=== PATIENT | female | born 1955 | race African-American/Black ===

== ENCOUNTER 2023-11-19 12:05 | Inpatient (IN) | payer MEDICARE, OTHER ==
[~2023-11-19] VITALS: Ht 170.2 cm; Wt 47.6 kg
[2023-11-19 13:01] LABS: EOSINOPHILS # (AUTO) 0.1 K/uL (0.0-0.7); EOSINOPHILS % (AUTO) 2.3 % (0.0-7.0); HEMATOCRIT 39.3 % (31.2-41.9); HEMOGLOBIN 12.8 g/dL (10.9-14.3); LYMPHOCYTES # (AUTO) 1.8 K/uL (0.8-4.8); LYMPHOCYTES % (AUTO) 43.7 % (20.5-51.5); MEAN CORPUSCULAR HEMOGLOBIN 28.4 uug (24.7-32.8); MEAN CORPUSCULAR HGB CONC 33 g/dL (32.3-35.6); MEAN CORPUSCULAR VOLUME 86.9 fL (75.5-95.3); MONOCYTES # (AUTO) 0.4 K/uL (0.1-1.30); MONOCYTES % (AUTO) 8.5 % (0.0-11.0); NEUTROPHILS # (AUTO) 1.8 K/uL (1.8-8.9); NEUTROPHILS % (AUTO) 44.5 % (38.5-71.5); PLATELET COUNT (AUTO) 163 K/uL (179-408); RED BLOOD CELL COUNT(AUTO) 4.52 MIL/uL (3.63-4.92); RED CELL DISTRIBUTION WIDTH 13.5 % (12.3-17.7); WHITE BLOOD COUNT (AUTO) 4.1 K/uL (3.8-11.8)
[2023-11-19] MEDS ORDERED: METF-442 PO (13:01)
[2023-11-19] MEDS ORDERED: FURO40TA5 PO (13:01)
[2023-11-19] MEDS ORDERED: OMEP20CA15 PO (13:01)
[2023-11-19] MEDS ORDERED: LIDOCAINE 4% CREAM (13:01)
[2023-11-19] MEDS ORDERED: [UNRECOGNIZED DRUG - OTHER] (13:01)
[2023-11-19] MEDS ORDERED: DICLOFENAC 1% (13:01)
[2023-11-19] MEDS ORDERED: DULO20CA PO (13:01)
[2023-11-19] MEDS ORDERED: REPA0.5T6 PO (13:01)
[2023-11-19] MEDS ORDERED: PHEN100C4 PO (13:01)
[2023-11-19] MEDS ORDERED: SEMA0.25 SQ (13:01)
[2023-11-19] MEDS ORDERED: GLUCERNA (13:01)
[2023-11-19] MEDS ORDERED: MULTIVITAMIN (13:01)
[2023-11-19] MEDS ORDERED: FOLI1TAB27 PO (13:01)
[2023-11-19] MEDS ORDERED: ATOR80TA PO (13:01)
[2023-11-19] MEDS ORDERED: ENALIPRIL (13:01)
[2023-11-19] MEDS ORDERED: INSU100V39 SQ (13:01)
[2023-11-19] MEDS ORDERED: RUXOLITINIB (13:01)
[2023-11-19] MEDS ORDERED: ASPI81TA31 PO (13:01)
[2023-11-19] MEDS ORDERED: [UNRECOGNIZED DRUG - OTHER] SQ (13:01)
[2023-11-19 13:12] LABS: ALANINE AMINOTRANSFERASE 24 U/L (14-59); ALBUMIN 3.7 g/dL (3.4-5.0); ALKALINE PHOSPHATASE 128 U/L (50-136); ASPARTATE AMINOTRANSFERASE 11 U/L (15-37); BILIRUBIN,TOTAL 0.3 mg/dL (0.2-1.0); CARBON DIOXIDE 29 mmol/L (21-32); CHLORIDE 100 mmol/L (98-107); CREATININE 0.7 mg/dL (0.6-1.3); GLUCOSE 175 mg/dL (74-106); POTASSIUM 3.8 mmol/L (3.5-5.1); SODIUM SERUM 141 mmol/L (136-145); TOTAL PROTEIN, SERUM 6.5 g/dL (6.4-8.2); UREA NITROGEN, BLOOD 14 mg/dL (7-18)
[2023-11-19] MEDS ORDERED: DEXTROSE 50% 50 ML DISP.SYRIN IV PRN (13:15)
[2023-11-19] MEDS ORDERED: ACETAMINOPHEN 325 MG TABLET PO PRN (13:15)
[2023-11-19] MEDS ORDERED: ONDANSETRON 4 MG/2 ML VIAL IV PRN (13:15)
[2023-11-19] MEDS ORDERED: HYDROCODONE/APAP 5-325MG TABLET PO PRN (13:15)
[2023-11-19] MEDS ORDERED: MAGNESIUM HYDROXIDE 30 ML LIQUID UDC PO PRN (13:15)
[2023-11-19] MEDS ORDERED: REMEDY ESSENTIAL ZINC PASTE 113 GM TP PRN (13:15)
[2023-11-19 13:19] LABS: DIFFERENTIAL COMMENT 1
[2023-11-19 13:20] LABS: BILIRUBIN,DIRECT < 0.1 mg/dL (0.0-0.2)
[2023-11-19] MEDS ORDERED: VOLTAREN XX SCH (13:30)
[2023-11-19] MEDS ORDERED: REPAGLINIDE 1 MG TABLET PO SCH (13:30)
[2023-11-19 15:32] VITALS: BP 129/91; TEMP 98.5; O2SAT 95
[2023-11-19 15:33] LABS: *BILIRUBIN,URIN NEGATIVE (NEGATIVE); *COLOR,URINE YELLOW (YELLOW); *KETONES,URINE NEGATIVE (NEGATIVE); *PROTEIN,URINE NEGATIVE (NEGATIVE); *UROBILINOGEN,URINE 0.2 E.U./dl (NORMAL); LEUKOCYTE ESTERASE ,URINE 3+ (NEGATIVE); NITRITE, URINE NEGATIVE (NEGATIVE); PH,URINE 7.5 (5.0-8.0); UGLUCOSE NEGATIVE (NEGATIVE)
[2023-11-19 16:06] LABS: *BLOOD, URINE TRACE (NEGATIVE); *CLARITY,URINE SLIGHTLY CLOUDY (CLEAR)
[2023-11-19 17:04] LABS: BACTERIA,URINE FEW /HPF (NONE SEEN); RBC,URINE 0-3 /HPF (0-3); SQUAMOUS EPITHELIAL CELL,UR FEW /HPF (NONE SEEN); WBC,URINE TNTC /HPF (0-3)
[2023-11-19] MEDS: BLOOD SUGAR DIAGNOSTIC 1 EACH STRIP VI SCH (17:23)
[2023-11-19] MEDS: INSULIN REGULAR, HUMAN 300 UNIT/3 ML VIAL SQ PRN (17:25)
[2023-11-19] MEDS: REPAGLINIDE 1 MG TABLET PO SCH (17:27)
[2023-11-19] MEDS: CEFTRIAXONE 1 G in IV DEXTROSE 5% 50 ML IV SCH (20:41)
[2023-11-19] MEDS: PHENYTOIN SODIUM EXTENDED 100 MG CAPSULE.SA PO SCH (20:41)
[2023-11-19] MEDS: ATORVASTATIN 40 MG TABLET PO SCH (20:48)
[2023-11-19 22:10] VITALS: BP 136/64; TEMP 98.2; O2SAT 99
[2023-11-20] MEDS: PANTOPRAZOLE SODIUM 40 MG TABLET.DR PO SCH (06:13)
[2023-11-20 06:45] LABS: BASOPHILS % (AUTO) 0.5 % (0.0-2.0); EOSINOPHILS # (AUTO) 0.1 K/uL (0.0-0.7); EOSINOPHILS % (AUTO) 3.4 % (0.0-7.0); HEMATOCRIT 37.6 % (31.2-41.9); HEMOGLOBIN 12.5 g/dL (10.9-14.3); LYMPHOCYTES # (AUTO) 1.6 K/uL (0.8-4.8); LYMPHOCYTES % (AUTO) 48.5 % (20.5-51.5); MEAN CORPUSCULAR HEMOGLOBIN 28.8 uug (24.7-32.8); MEAN CORPUSCULAR HGB CONC 33 g/dL (32.3-35.6); MEAN CORPUSCULAR VOLUME 86.7 fL (75.5-95.3); MONOCYTES # (AUTO) 0.3 K/uL (0.1-1.30); MONOCYTES % (AUTO) 10.6 % (0.0-11.0); NEUTROPHILS # (AUTO) 1.2 K/uL (1.8-8.9); PLATELET COUNT (AUTO) 155 K/uL (179-408); RED BLOOD CELL COUNT(AUTO) 4.33 MIL/uL (3.63-4.92); RED CELL DISTRIBUTION WIDTH 13.6 % (12.3-17.7); WHITE BLOOD COUNT (AUTO) 3.2 K/uL (3.8-11.8)
[2023-11-20 06:51] LABS: DIFFERENTIAL COMMENT 1
[2023-11-20 06:52] LABS: CALCIUM 8.6 mg/dL (8.5-10.1); CARBON DIOXIDE 32 mmol/L (21-32); CHLORIDE 101 mmol/L (98-107); CHOLESTEROL 98 mg/dL (<200); CREATININE 0.5 mg/dL (0.6-1.3); GLUCOSE 226 mg/dL (74-106); HDL CHOLESTEROL 53 mg/dL (40-60); MAGNESIUM 1.7 mg/dL (1.8-2.4); PHOSPHOROUS 4.1 mg/dL (2.5-4.9); SODIUM SERUM 140 mmol/L (136-145); TRIGLYCERIDES 25 MG/DL (30-150); UREA NITROGEN, BLOOD 11 mg/dL (7-18)
[2023-11-20 07:01] LABS: THYROID STIMULATING HORMONE 2.625 mIU/mL (0.358-3.740)
[2023-11-20] MEDS: DULOXETINE 20 MG CAPSULE.DR PO SCH (08:41)
[2023-11-20] MEDS: FUROSEMIDE 40 MG TABLET PO SCH (08:41)
[2023-11-20] MEDS: ASPIRIN 81 MG TAB.CHEW PO SCH (08:41)
[2023-11-20] MEDS: ENALAPRIL 10 MG TABLET PO SCH (08:42)
[2023-11-20] MEDS: FOLIC ACID 1 MG TABLET PO SCH (08:42)
[2023-11-20] MEDS ORDERED: SEMA0.25 SQ (10:14)
[2023-11-20] MEDS: MAGNESIUM OXIDE 400 MG TABLET PO ONE (10:15)
[2023-11-20] MEDS ORDERED: ENAL-80 PO (10:22)
[2023-11-20 10:53] VITALS: BP 127/66; TEMP 98; O2SAT 99
[2023-11-20] MEDS ORDERED: MULT-1045 PO (11:12)
[2023-11-20] MEDS ORDERED: LIDO28.310 TP (11:12)
[2023-11-20] MEDS ORDERED: INSU100I24 SQ (11:12)
[2023-11-20] MEDS ORDERED: RUXOLITINIB TOP (11:12)
[2023-11-20 12:00] VITALS: BP 102/68; TEMP 98.8; O2SAT 97
[2023-11-20 16:03] VITALS: BP 101/60; TEMP 98.3; O2SAT 98
[2023-11-20 20:00] VITALS: BP 112/70; TEMP 98.3; O2SAT 97
[2023-11-21 06:44] VITALS: BP 117/63; TEMP 98; O2SAT 99
[2023-11-21 07:21] LABS: CREATININE 0.7 mg/dL (0.6-1.3); MAGNESIUM 2.1 mg/dL (1.8-2.4); POTASSIUM 3.9 mmol/L (3.5-5.1)
[2023-11-21 11:49] VITALS: BP 104/69; TEMP 98.3; O2SAT 93
[2023-11-21 16:44] VITALS: BP 99/65; TEMP 98.3; O2SAT 97
[2023-11-21] MEDS: GLUCERNA SHAKE 237 ML CAN PO SCH (17:04)
[2023-11-21] MEDS: RUXOLITINIB TP SCH (17:11)
[2023-11-21 20:00] VITALS: BP 111/69; TEMP 98.3; O2SAT 96
[2023-11-21] MEDS: TRESIBA 100 UNIT/ML SQ SCH (21:13)
[2023-11-22 06:40] VITALS: BP 99/59; TEMP 97.4; O2SAT 99
[2023-11-22 07:26] LABS: BASOPHILS % (AUTO) 0.6 % (0.0-2.0); EOSINOPHILS # (AUTO) 0.1 K/uL (0.0-0.7); EOSINOPHILS % (AUTO) 4.2 % (0.0-7.0); HEMATOCRIT 38.4 % (31.2-41.9); HEMOGLOBIN 12.6 g/dL (10.9-14.3); LYMPHOCYTES # (AUTO) 1.5 K/uL (0.8-4.8); LYMPHOCYTES % (AUTO) 50.2 % (20.5-51.5); MEAN CORPUSCULAR HEMOGLOBIN 28.3 uug (24.7-32.8); MEAN CORPUSCULAR HGB CONC 33 g/dL (32.3-35.6); MEAN CORPUSCULAR VOLUME 86.5 fL (75.5-95.3); MONOCYTES # (AUTO) 0.3 K/uL (0.1-1.30); MONOCYTES % (AUTO) 11.3 % (0.0-11.0); NEUTROPHILS % (AUTO) 33.7 % (38.5-71.5); PLATELET COUNT (AUTO) 176 K/uL (179-408); RED BLOOD CELL COUNT(AUTO) 4.44 MIL/uL (3.63-4.92); RED CELL DISTRIBUTION WIDTH 13.4 % (12.3-17.7)
[2023-11-22 07:28] LABS: CALCIUM 8.9 mg/dL (8.5-10.1); CARBON DIOXIDE 30 mmol/L (21-32); CHLORIDE 102 mmol/L (98-107); CREATININE 0.5 mg/dL (0.6-1.3); GLUCOSE 175 mg/dL (74-106); POTASSIUM 3.8 mmol/L (3.5-5.1); SODIUM SERUM 140 mmol/L (136-145); UREA NITROGEN, BLOOD 14 mg/dL (7-18)
[2023-11-22 07:54] LABS: DIFFERENTIAL COMMENT 1
[2023-11-22] MEDS ORDERED: ENAL10TA19 PO (10:09)
[2023-11-22] MEDS ORDERED: REPAGLINIDE PO (10:09)
[2023-11-22] MEDS ORDERED: PANT40TA49 PO (10:09)
[2023-11-22] MEDS ORDERED: INSU100V28 SQ (10:09)
[2023-11-22] MEDS ORDERED: Blood Sugar Diagnostic VI (10:09)
[2023-11-22] MEDS ORDERED: NUT.237L36 PO (10:09)
[2023-11-22] MEDS ORDERED: CEPH500T PO (10:10)
[2023-11-22] MEDS ORDERED: INSULIN LISPRO 300 UNIT/3 ML VIAL SQ ONE (11:30)
[2023-11-22 11:31] VITALS: BP 100/63; TEMP 98.3; O2SAT 96
[2023-11-22] MEDS ORDERED: INSULIN REGULAR, HUMAN 300 UNITS/3 ML VIAL SQ ONE (11:45)
== END 2023-11-22 13:40 | DRG 640 ==
LOC: ER 12:06 → MEDSURG3 12:32 → UNDOADMIN 14:42
PROVIDERS: ADMIT Nurse Practitioner Acute Care; ATTEND Nurse Practitioner Acute Care
DX: R62.7 Adult failure to thrive (principal); E43 Unspecified severe protein-calorie malnutrition; N39.0 Urinary tract infection, site not specified; I69.354 Hemiplegia and hemiparesis following cerebral infarction affecting left non-dominant side; R64 Cachexia; Z68.1 Body mass index [BMI] 19.9 or less, adult; I69.398 Other sequelae of cerebral infarction; G40.909 Epilepsy, unspecified, not intractable, without status epilepticus; Z66 Do not resuscitate; R29.6 Repeated falls; K22.2 Esophageal obstruction; E78.5 Hyperlipidemia, unspecified; I25.2 Old myocardial infarction; E11.41 Type 2 diabetes mellitus with diabetic mononeuropathy; I10 Essential (primary) hypertension; I25.10 Atherosclerotic heart disease of native coronary artery without angina pectoris; B96.89 Other specified bacterial agents as the cause of diseases classified elsewhere; K21.9 Gastro-esophageal reflux disease without esophagitis; Z79.899 Other long term (current) drug therapy; F01.50 Vascular dementia, unspecified severity, without behavioral disturbance, psychotic disturbance, mood disturbance, and anxiety; Z91.041 Radiographic dye allergy status; Z79.84 Long term (current) use of oral hypoglycemic drugs; Z79.4 Long term (current) use of insulin; Z74.09 Other reduced mobility; G56.92 Unspecified mononeuropathy of left upper limb; Z85.89 Personal history of malignant neoplasm of other organs and systems
CPT/HCPCS: 36415; 70450; 71045; 71250; 83735; 84100; 84443; 85025; 93005; 93880; A4606; A4663; G0378; J0696; J1815